=== PATIENT | male | born 1990 | race Two or more races ===

== ENCOUNTER 2016-06-09 21:05 | Inpatient (IN) | payer OTHER ==
[~2016-06-09] VITALS: Ht 182.9 cm; Wt 69.9 kg
[~2016-06-09 21:05] MED LIST: CLON0.1T14 PO; DICY20TA28 PO; Gabapentin PO; HYDR-3895 PO; Ibuprofen PO; METH-33 PO; QUET100T PO
--- NOTE | 2016-06-10 00:30 | NUR ---
ADMISSION NOTE Pt is 26 year old male, admitted to [facility] 3rd floor on 06/09/16 at 2349. Body search and skin check done in room 307. No contraband found, skin intact. Pt ambulatory with steady gait. Urine collected for drug screen and sent to lab. Pt is primary source of information. Pt reports allergy to Naloxone, allergic reaction is hives. Pt wishes to be full code. Pt doesn't have PCP, denies hospitalizations within past 30 days. Substance use history: 1. Heroin - pt reports he started to use heroin at age 19 (7 yr ago), with multiple attempts to stay sober, for the past 1 month pt had been taking 2.5 g of heroin daily, IV; last dose 06/09/16, 2 g IV. 2. BZO (Valium or Xanax, whichever is available) - pt reports he started to use BZO at age 15 (11 yr ago), for the past 1 month, pt reports taking 50-100 mg of Valium daily or/ and 4-12 mg of Xanax daily, PO or snorting, last use 06/09/16 50 mg of Valium and 4 mg of Xanax PO 2. ETOH (vodka and beer) - pt reports he started drink at age 14 (12yrs ago), for the past month, pt had been drinking 750 ml of vodka daily and 6x12 oz cans of beer daily, last drink on 06/08/16, 500 ml of 3. Cocaine - pt started to use cocaine at age 19 (7 yr ago), for past 1 month, pt reported taking 3.5 g of cocaine daily IV, last use 06/09/16 in the amount of 2 g IV. Pt reports occasionally smoking methamphetamine, approximately once a week, 1 g by smoking; last dose on 06/09/16 in the amount of 1 g; PCP - using intermittently, approximately once in 2 wks, last use on 06/08/16 "1 shroom"; acid - used intermittently, approximately once a month, last use 06/08/16, in the amount of "3 hits"; and smoking marijuana intermittently, 1-2 times a week, last use 06/07/16 "2 hits" Pt reports smoking tobacco since 14 y o on average 1 pack a day. Information on smoking cessation provided, reinforcement needed. Rehab history (pt was reluctant to provide treatment information, became agitated and mentioned being in "10 rehabs" but refused to provide more detailed information): 1. [facility] 2. [facility] - September 2015, Dec 2015, Apr 2016. 3. [facility] - Apr 2016 - May, Longest period of sobriety is 5 months in Feb 2015 Pt reports hx of seizures, withdrawal-related in Feb, 2015. Pt reports PMH of (1) anxiety - dx in 2015, (2) depression - dx in 2015, (3) ADHD - dx in 2003, (4) Hep C - dx in 2014. Pt reports taking the following medications at home: 1. Gabapentin - 600 mg PO TID, last time taken on 06/09/16 2. Seroquel - 100 mg PO HS, last taken 1 wk ago. Pt appears intoxicated: speech soft and slurred, eye contact is poor, pt is difficult to concentrate and to answer questions. Pt denies SI/HI. Pt presented with c/o chills, skin flushed, reports minimal anxiety, body aches 3/10. COWS 5, CIWA 4.. Noted multiple track dawson BUE, 2cm x 2cm redness on left upper arm . Pupils PERRLA, 2 mm bilat. Lung sounds clear, pt denies cough or SOB. Pt reported productive cough on and off started 2 days ago, no cough present on admission. Heart rate regular, pt denies chest pain, no murmurs noted. No edema noted. Cap refill <3 sec. Bowel sounds active x 4, abdomen soft, non tender, pt denies n/v, last BM 06/05/16. VS: temp 98.4, HR 84, RR 16, SpO2 98%, BP 128/76, Ht 6', Wt 154 lb Pt oriented to room and equipment, call light system shown with returned demonstration. Side rails up x2, call light within reach, bed locked in lowest position. Awaiting for MD Guardado to provide admission orders.
[2016-06-10] MEDS ORDERED: DIAZEPAM 5 MG TABLET PO PRN (00:45)
[2016-06-10] MEDS ORDERED: HYDROXYZINE PAMOATE 25 MG CAPSULE PO PRN (00:45)
[2016-06-10] MEDS ORDERED: LORAZEPAM 2 MG/1 ML VIAL IM PRN (00:45)
[2016-06-10] MEDS ORDERED: MIRALAX 17 GM POWD.PACK PO PRN (00:45)
[2016-06-10] MEDS ORDERED: DICYCLOMINE HCL 20 MG TABLET PO PRN (00:45)
[2016-06-10] MEDS ORDERED: MAGNESIUM HYDROXIDE 30 ML LIQUID UDC PO PRN (00:45)
[2016-06-10] MEDS ORDERED: MAG HYDROX/AL HYDROX/SIMETH 30 ML LIQUID UDC PO PRN (00:45)
[2016-06-10] MEDS ORDERED: BUPRENORPHINE HCL 2 MG TAB.SUBL SL PRN (00:45)
[2016-06-10] MEDS ORDERED: diphenhydrAMINE 50 MG CAPSULE PO PRN (00:45)
[2016-06-10] MEDS ORDERED: ACETAMINOPHEN 325 MG TABLET PO PRN (00:45)
[2016-06-10] MEDS ORDERED: PROMETHAZINE HCL 25 MG/1 ML VIAL IM PRN (00:45)
[2016-06-10] MEDS ORDERED: METHOCARBAMOL 750 MG TABLET PO PRN (00:45)
[2016-06-10] MEDS ORDERED: ONDANSETRON ODT 4 MG TAB.RAPDIS SL PRN (00:45)
[2016-06-10] MEDS ORDERED: IBUPROFEN 400 MG TABLET PO PRN (00:45)
[2016-06-10] MEDS ORDERED: LOPERAMIDE HCL 2 MG CAPSULE PO PRN ×2 (00:45)
[2016-06-10] MEDS ORDERED: DIAZEPAM 10 MG TABLET PO PRN ×2 (00:45)
[2016-06-10 01:38] LABS: *AMPHETAMINE, URINE NEGATIVE (NEGATIVE); *BARBITURATE, URINE NEGATIVE (NEGATIVE); *CANNABINOID, URINE NEGATIVE (NEGATIVE); *COCCAINE, URINE POSITIVE (NEGATIVE); *OPIATE, URINE POSITIVE (NEGATIVE); *PHENCYCLIDINE SCREEN,URINE POSITIVE (NEGATIVE)
[2016-06-10 04:00] VITALS: BP 94/55
[2016-06-10] MEDS ORDERED: GABA600T2 PO (05:47)
--- NOTE | 2016-06-10 07:35 | NUR ---
BEGINNING OF SHIFT Patient endorsement report received from marker assembler nurse, all pertinent information discussed. Patient is a 26 year old male admitted on 06/09/2016 with admitting Dx: Opiate/bzo/etoh dependence. Patient with past medical history of: Hep c +, anxiety, depression, And ADHD. Patient with substance use history of: bzo-Valium 50-100mg daily for one month, Xanax 4-12mg daily for one month, ETOH-beer 6x12oz cans and 750ml of vodka daily for 1 month, heroin IV 2.5grams daily for one month, cocaine IV 3.5grams daily for one month, also reported using methamphetamine, PCP, acid, and marijuana use. Patient currently with no ongoing taper but has PRN medications for s/sx of withdrawal, will continue to monitor closely. As per marker assembler patient slept for 3 hour, and received no PRNs as per marker assembler. Patients last ciwa score of: 5 and last cow score of: 4. Patient received in bed with eyes closed respirations are even and unlabored. Responsive to verbal stimuli, educated regarding plan of care for the day and medication regimen, safety measures in place, call light with in reach, will continue to monitor closely.
--- NOTE | 2016-06-10 07:40 | NUR ---
END OF SHIFT NOTE Pt is 26 y o male, admitted on 06/09/16 for Bzo (valium 50-100 mg PO daily for 1 month, Xanax 4-12 mg PO daily), ETOH (750 ml of vodka and 6x12 oz cans of beer daily for 1 month), heroin (2.5 g daily for 1 month), cocaine (3.5 g daily for 1 month). Pt also reported "occasionally" use of methamphetamine, PCP, acid, marijuana. Pt presented with s/s of intoxications (drowsiness, difficulty concentration, poor eye contact, slurred speech). Last COWS 2, CIWA 2 at 0400. VSS. No prns were given. Pt has prn Valium and Subutex available based on withdrawal s/s. Pt refused blood draw. Pt slept for 4 hrs; PO intake 1296 ml, urination x1. PMH of anxiety, depression, ADHD, SZ. Fall and seizure precautions in place. Full code, allergy to Narcan. Report endorsed to day shift nurse.
[2016-06-10 08:03] VITALS: BP 107/60
[2016-06-10] MEDS: MULTIVITAMINS,THERAPEUTIC TABLET PO SCH (08:32)
[2016-06-10] MEDS: THIAMINE HCL 100 MG TABLET PO SCH (08:32)
[2016-06-10] MEDS: FOLIC ACID 1 MG TABLET PO SCH (08:32)
--- NOTE | 2016-06-10 08:32 | NUR ---
PRN VALIUM Patient presented flushed, anxiety, barely sweating and mild head fullness, with ciwa score of: 7, adminstered valium 5mg po as per MD orders. will monitor effectiveness.
[2016-06-10] MEDS ORDERED: THIAMINE HCL 200 MG/2 ML VIAL IM ONE (09:00)
--- NOTE | 2016-06-10 09:32 | NUR ---
VALIUM REASSESSMENT Patient reports detox medication effective at reducing s/sx of withdrawal will continue to monitor. encouraged patient to attend group therapies/sessions to learn new coping skills to prevent relapse, will continue to monitor, safety measures in plac.e
[2016-06-10 13:10] VITALS: BP 99/68
[2016-06-10 17:00] VITALS: BP 112/70
[2016-06-10] MEDS: CLONIDINE HCL 0.1 MG TABLET PO PRN (17:16)
--- NOTE | 2016-06-10 17:16 | NUR ---
PRN CLONIDINE Patient reports increase anxiety c/o of chills and sweats, provided with non pharmacological interventions with no relief, patient was administered clonidine as ordered will monitor effectiveness of medications.
--- NOTE | 2016-06-10 18:16 | NUR ---
CLONIDINE REASSESSMENT Patient reports medication effective, will continue to monitor closely. safety measures in place.
--- NOTE | 2016-06-10 18:53 | NUR ---
END OF SHIFT Patient alert and oriented x4, compliant with therapeutic plan of care. Patient with admitting Dx: opiate/bzo/etoh dependence, is scheduled to begin Subutex and Valium taper as ordered tomorrow, continues with as needed Subutex and Valium for s/sx of withdrawal , well tolerated, no ASE noted, continues under close observation.,Patient encouraged adequate PO fluid intake as tolerated,. 0900 assessment patient presented with: flushed, mild bone and joint aches, stuffy nasal, anxiety, barely sweating, mild head fullness with cow score of: 4 and ciwa score of: 7; 1300 assessment patient presented with: mild anxiety, barely sweating and c/o chills with cow score of: 2 and ciwa score of: 2. 1700 assessment patient presented with: mild anxiety, barely sweating and c/o chills with cow score of: 2 and ciwa score of: 2, encouraged patient to attend group therapies/sessions to learn new coping skills to prevent relapse, patient denies SI/HI. During shift administered PRN: Valium 5mg Po at 0832 as ordered PRN medications were Effective one hour post administration, Safety measures in place. Call light with in reach, will continue to monitor closely. Patient endorsement report given to caustic cresylate shift superintendent nurse, all pertinent information discussed.
--- NOTE | 2016-06-10 19:10 | NUR ---
START OF SHIFT NOTE : Patient alert and oriented x4, compliant with therapeutic plan of care. Patient with admitting Dx: opiate/bzo/etoh dependence, is scheduled to begin Subutex and Valium taper as ordered, on 06/11/2016, continues with PRN Subutex and Valium for s/sx of withdrawal , well tolerated, continues under close observation. Patient encouraged adequate PO fluid intake as tolerated. At 19:10 assessment patient presented with: mild anxiety, barely sweating and c/o chills with cow score of: 2 and ciwa score of: 2, encouraged patient to attend group therapies/sessions to learn new coping skills to prevent relapse, patient denies SI/HI. Safety measures in place. Call light within reach, will continue to monitor closely.
[2016-06-10 20:00] VITALS: BP 110/74
[2016-06-10] MEDS: GABAPENTIN 300 MG CAPSULE PO SCH (21:00)
[2016-06-11 04:00] VITALS: BP 111/70
--- NOTE | 2016-06-11 06:53 | NUR ---
END SHIFT NOTE : Patient alert and oriented x4, compliant with therapeutic plan of care. Patient with admitting Dx: opiate/bzo/etoh dependence, is scheduled to begin Subutex and Valium taper on 06/11/2016, Patient encouraged adequate PO fluid intake as tolerated. Pt remains compliant with the treatment plan. Pt denies nausea, vomiting and diarrhea. No PRNs were given during my shift. V/S remain WNL. RR=16, even and unlabored, lungs clear upon auscultation, abdomen soft and non- distended. Pt denies nausea, vomiting and diarrhea. LAST CIWA= 2 ,COWS=2 at 0400 , INTAKE= 1,000 ml, voided x 2, slept 10 hours. Safety measures in place : bed on lowest position with side rails x2 up for safety, call light within reach. Will continue to monitor closely and offer help
--- NOTE | 2016-06-11 07:26 | NUR ---
BEGINNING OF SHIFT Patient endorsement report received from fire alarm dispatcher nurse, all pertinent information discussed. Patient is a 26 year old male admitted on 06/09/2016 with admitting Dx: Opiate/bzo/etoh dependence. Patient with past medical history of: Hep c +, anxiety, depression, And ADHD. Patient with substance use history of: bzo-Valium 50-100mg daily for one month, Xanax 4-12mg daily for one month, ETOH-beer 6x12oz cans and 750ml of vodka daily for 1 month, heroin IV 2.5grams daily for one month, cocaine IV 3.5grams daily for one month, also reported using methamphetamine, PCP, acid, and marijuana use. Patient currently to begin subutex and valium taper as ordered, will continue to monitor closely. As per fire alarm dispatcher patient slept for 10 hour, and received no PRNs as per fire alarm dispatcher. Patients last ciwa score of: 2 and last cow score of: 2. Patient received in bed with eyes closed respirations are even and unlabored. Responsive to verbal stimuli, educated regarding plan of care for the day and medication regimen, safety measures in place, call light with in reach, will continue to monitor closely.
[2016-06-11 08:24] VITALS: BP 98/62
[2016-06-11] MEDS: GABAPENTIN 300 MG CAPSULE PO SCH ×2 (08:46→14:01)
[2016-06-11] MEDS: THIAMINE HCL 100 MG TABLET PO SCH (08:46)
[2016-06-11] MEDS: FOLIC ACID 1 MG TABLET PO SCH (08:46)
[2016-06-11] MEDS: MULTIVITAMINS,THERAPEUTIC TABLET PO SCH (08:46)
[2016-06-11] MEDS: DIAZEPAM 5 MG TABLET PO SCH ×2 (08:46→12:55)
[2016-06-11] MEDS ORDERED: TUBERCULIN,PURIF.PROT.DERIV. 5 TU/0.1 ML TEST ID ONE (09:00)
[2016-06-11] MEDS ORDERED: BUPRENORPHINE HCL 2 MG TAB.SUBL SL SCH (09:00)
[2016-06-11] MEDS ORDERED: DIAZEPAM 10 MG TABLET PO SCH (09:00)
[2016-06-11 12:54] VITALS: BP 117/65
[2016-06-11 14:02] VITALS: BP 117/65
[2016-06-11] MEDS: CLONIDINE HCL 0.1 MG TABLET PO PRN (14:02)
--- NOTE | 2016-06-11 15:00 | NUR ---
AMA Pt left AMA, Patient refused to comply with treatment, educated about the risk and consequences of leaving AMA, patient verbalized understanding but was adamant about leaving. Multiple staff member including doctors, patient advocates and nurses attempted to reason with patient without any success. VS WNL, skin intact, per patient denied any suicidal or homicidal ideations. patients psychiatrist and MD are aware. Patient was provided with a list of community resources, AMA forms explained and signed, all belongings and home medications were returned to patient, patient left facility AMA at 1500.
[2016-06-12] MEDS ORDERED: BUPRENORPHINE HCL 2 MG TAB.SUBL SL SCH ×2 (09:00→15:00)
[2016-06-12] MEDS ORDERED: DIAZEPAM 5 MG TABLET PO SCH (09:00)
[2016-06-13] MEDS ORDERED: DIAZEPAM 5 MG TABLET PO SCH ×2 (09:00)
[2016-06-13] MEDS ORDERED: BUPRENORPHINE HCL 2 MG TAB.SUBL SL SCH (09:00)
[2016-06-14] MEDS ORDERED: BUPRENORPHINE HCL 2 MG TAB.SUBL SL SCH (09:00)
[2016-06-14] MEDS ORDERED: DIAZEPAM 5 MG TABLET PO SCH (09:00)
== END 2016-06-11 15:00 | disposition left against medical advice (07) | DRG 894 ==
LOC: SRC 23:07
PROVIDERS: ADMIT Internal Medicine; ATTEND Internal Medicine
PROC: HZ2ZZZZ Detoxification Services for Substance Abuse Treatment (ICD-10-PCS; principal; 2016-06-09)
DX: F11.23 Opioid dependence with withdrawal (principal); F15.20 Other stimulant dependence, uncomplicated; F14.20 Cocaine dependence, uncomplicated; F10.230 Alcohol dependence with withdrawal, uncomplicated; F13.230 Sedative, hypnotic or anxiolytic dependence with withdrawal, uncomplicated; Y90.9 Presence of alcohol in blood, level not specified; Z59.1 Inadequate housing; G47.00 Insomnia, unspecified; F41.9 Anxiety disorder, unspecified; B19.20 Unspecified viral hepatitis C without hepatic coma; F17.210 Nicotine dependence, cigarettes, uncomplicated; Z81.1 Family history of alcohol abuse and dependence; Z81.8 Family history of other mental and behavioral disorders; F12.90 Cannabis use, unspecified, uncomplicated; F32.9 Major depressive disorder, single episode, unspecified; R26.81 Unsteadiness on feet
CPT/HCPCS: 80307; 80346; 80353; 80361; 86580; A4663; J3411